=== PATIENT | female | born 1960 | race Caucasian/White ===

== ENCOUNTER 2017-07-17 13:22 | Emergency (ER) | payer OTHER ==
[~2017-07-17] VITALS: Ht 165.1 cm; Wt 74.8 kg
[~2017-07-17 13:22] MED LIST: METFORMIN HCL500 MG PO; PRAVASTATIN PO; SYNTHROID PO
[2017-07-17 14:08] VITALS: BP 155/80
== END 2017-07-17 14:10 | disposition home or self-care (01) ==
LOC: FSED 13:22
DX: R09.81 Nasal congestion (principal); J01.90 Acute sinusitis, unspecified
CPT/HCPCS: 99282

== ENCOUNTER 2024-06-01 15:45 | Observation (INO) | payer OTHER ==
[~2024-06-01] VITALS: Ht 166.4 cm; Wt 53.3 kg
[2024-06-01] MEDS: DEXAMETHASONE SOD PHOS INJ 4 MG/ML SDV IM ONE (16:42)
[2024-06-01] MEDS: ACETAMINOPHEN 325 MG TAB PO ONE (16:43)
[2024-06-01] MEDS: KETOROLAC TROMETHAMINE 30 MG/ML VIAL IM ONE (16:43)
[2024-06-01] MEDS ORDERED: IBUPROFEN600 MG PO (16:54)
[2024-06-01] MEDS ORDERED: HYDROCODON-ACE1 EA12 PO (16:54)
[2024-06-01] MEDS ORDERED: ONDANSETRON ODT4 MG PO (16:54)
[2024-06-01 18:15] VITALS: PULSE 98; RESP 16; TEMP 98
[2024-06-01] MEDS ORDERED: SODIUM CHLORIDE FLUSH 10 ML SYR INJ PRN (18:15)
[2024-06-01] MEDS ORDERED: ONDANSETRON HCL INJ 2MG/ML 2ML 2 MG/ML VIAL IV PRN (18:45)
[2024-06-01] MEDS ORDERED: LACTULOSE SYRUP 20 GM/30 ML UDC PO PRN (18:45)
[2024-06-01] MEDS ORDERED: DIPHENHYDRAMINE HCL INJ 50 MG/ML VIAL IV PRN (18:45)
[2024-06-01] MEDS: LACTATED RINGER'S 1,000 ML IV SCH (18:45)
[2024-06-01] MEDS ORDERED: DEXTROSE 50% SYRINGE 50 ML IV PRN (19:15)
[2024-06-01 20:00] VITALS: BP 136/62; PULSE 105; RESP 18; TEMP 97.8; O2SAT 99
[2024-06-01 21:00] VITALS: BP 136/62; PULSE 105; RESP 18; TEMP 97.8; O2SAT 99
[2024-06-01] MEDS: INSULIN REGULAR, HUMAN 100 UNIT/1 ML SQ SCH (21:00)
[2024-06-01] MEDS ORDERED: ACETAMINOPHEN 325 MG TAB PO PRN (22:30)
[2024-06-01] MEDS ORDERED: BISACODYL 10 MG SUPP PR PRN (22:30)
[2024-06-01] MEDS: Morphine 4mg INJECTION 4 MG/ML INJ IV PRN (23:24)
[2024-06-02] VITALS (7 sets, daily range): BP systolic 137–158; BP diastolic 69–80; PULSE 79–87; RESP 16–18; TEMP 97.3–99.2; O2SAT 97–100
[2024-06-02] MEDS: ZOLPIDEM TARTRATE 5 MG TAB PO PRN (00:21)
[2024-06-02 00:28] LABS: BASOPHILS % 0.2 % (0.0-1.0); EOSINOPHILS % 0.2 % (0.0-6.0); HEMATOCRIT 40.2 % (34.2-44.1); HEMOGLOBIN 13.2 g/dL (12.0-16.0); LYMPHOCYTES # (AUTO) 0.4 (1.0-3.2); LYMPHOCYTES % 10.9 % (18.0-39.1); MEAN CORPUSCULAR HEMOGLOBIN 32.4 pg (28-32); MEAN CORPUSCULAR HGB CONC 32.8 g/dL (31-35); MEAN CORPUSCULAR VOLUME 98.5 fL (81-99); MONOCYTES # (AUTO) 0.1 (0.2-0.8); MONOCYTES % 2.2 % (4.4-11.3); NEUTROPHILS # (AUTO) 3.5 (2.1-6.9); PLATELET COUNT 240 x10e3/uL (140-360); RED BLOOD COUNT 4.08 x10e6/uL (3.6-5.1); RED CELL DISTRIBUTION WIDTH 10.8 % (11.7-14.4); WHITE BLOOD COUNT 4.03 x10e3/uL (4.8-10.8)
[2024-06-02 00:32] LABS: INR 0.85; PROTHROMBIN TIME 12.2 seconds (11.9-14.5)
[2024-06-02 00:33] LABS: PARTIAL THROMBOPLASTIN TIME 27.5 seconds (23.8-35.5)
[2024-06-02 00:43] LABS: ALBUMIN 4.1 g/dL (3.5-5.0); ALBUMIN/GLOBULIN RATIO 1.5 (0.8-2.0); ANION GAP 18.6 mmol/L (8-16); BILIRUBIN,TOTAL 1.9 mg/dL (0.2-1.2); CALCIUM 9.7 mg/dL (8.4-10.2); CREATININE, SERUM 1.38 mg/dL (0.57-1.11); POTASSIUM 4.6 mmol/L (3.5-5.1); TOTAL PROTEIN 6.8 g/dL (6.5-8.1)
[2024-06-02] MEDS: LEVOTHYROXINE SODIUM 75 MCG TAB PO SCH (05:40)
[2024-06-02] MEDS: LEVOTHYROXINE SODIUM 100 MCG TAB PO SCH (05:40)
[2024-06-02] MEDS: FAMOTIDINE 20 MG TAB PO SCH (05:41)
[2024-06-02 07:30] LABS: BASOPHILS % 0.2 % (0.0-1.0); EOSINOPHILS % 0.2 % (0.0-6.0); HEMATOCRIT 38.1 % (34.2-44.1); HEMOGLOBIN 12.4 g/dL (12.0-16.0); LYMPHOCYTES # (AUTO) 0.8 (1.0-3.2); LYMPHOCYTES % 16.6 % (18.0-39.1); MEAN CORPUSCULAR HEMOGLOBIN 32.4 pg (28-32); MEAN CORPUSCULAR HGB CONC 32.5 g/dL (31-35); MEAN CORPUSCULAR VOLUME 99.5 fL (81-99); MONOCYTES # (AUTO) 0.5 (0.2-0.8); MONOCYTES % 10.1 % (4.4-11.3); NEUTROPHILS # (AUTO) 3.7 (2.1-6.9); NEUTROPHILS % 72.7 % (38.7-80.0); PLATELET COUNT 215 x10e3/uL (140-360); RED BLOOD COUNT 3.83 x10e6/uL (3.6-5.1); RED CELL DISTRIBUTION WIDTH 10.9 % (11.7-14.4); WHITE BLOOD COUNT 5.07 x10e3/uL (4.8-10.8)
[2024-06-02 08:04] LABS: ALBUMIN 3.6 g/dL (3.5-5.0); ALBUMIN/GLOBULIN RATIO 1.4 (0.8-2.0); ANION GAP 16.6 mmol/L (8-16); BILIRUBIN,TOTAL 1.8 mg/dL (0.2-1.2); CALCIUM 9.5 mg/dL (8.4-10.2); CREATININE, SERUM 1.07 mg/dL (0.57-1.11); MAGNESIUM 1.6 MG/DL (1.3-2.1); POTASSIUM 4.6 mmol/L (3.5-5.1); TOTAL PROTEIN 6.2 g/dL (6.5-8.1)
[2024-06-02] MEDS: SENNOSIDES 8.6 MG TAB PO SCH (08:18)
[2024-06-02] MEDS: DOCUSATE SODIUM 100 MG CAP PO SCH (08:18)
[2024-06-02 08:26] LABS: FERRITIN 314.93 ng/mL (4.63-204.00)
[2024-06-02] MEDS: HYDROCODONE/APAP 7.5MG-325MG 1 EA TAB PO PRN (08:28)
[2024-06-02] MEDS: ONDANSETRON HCL INJ 2MG/ML 2ML 2 MG/ML VIAL IV PRN (09:54)
[2024-06-02 10:20] LABS: INR 0.87; PROTHROMBIN TIME 12.4 seconds (11.9-14.5)
[2024-06-02 10:21] LABS: PARTIAL THROMBOPLASTIN TIME 25.8 seconds (23.8-35.5)
[2024-06-02] MEDS ORDERED: PROPOFOL IV EMULSION 50 ML IV ONE (15:09)
[2024-06-02] MEDS ORDERED: MIDAZOLAM HCL 2 MG/2 ML VIAL ONE (15:09)
[2024-06-02] MEDS ORDERED: LIDOCAINE HCL 2% LOCAL INJ 5 ML SDV VIAL INJ ONE (15:09)
[2024-06-02] MEDS ORDERED: FENTANYL CITRATE/PF 100MCG/2 ML INJ ONE (15:09)
[2024-06-02] MEDS ORDERED: ONDANSETRON HCL INJ 2MG/ML 2ML 2 MG/ML VIAL ONE (15:40)
[2024-06-02] MEDS ORDERED: DEXAMETHASONE SOD PHOS INJ 4 MG/ML SDV ONE (15:40)
[2024-06-02] MEDS ORDERED: HYDROCODON-ACE1 EA12 PO (16:18)
[2024-06-02] MEDS: HYDROMORPHONE 1MG/1ML INJ ONE (17:12)
== END 2024-06-02 18:25 | disposition home or self-care (01) ==
LOC: FSED 15:55 → ERHOLD 18:09 → INTOOBSV 18:09 → MED/SURG 18:55
PROVIDERS: ADMIT Internal Medicine; ATTEND Internal Medicine
DX: S32.010A Wedge compression fracture of first lumbar vertebra, initial encounter for closed fracture (principal); S80.02XA Contusion of left knee, initial encounter; W01.0XXA Fall on same level from slipping, tripping and stumbling without subsequent striking against object, initial encounter; Y92.009 Unspecified place in unspecified non-institutional (private) residence as the place of occurrence of the external cause; N17.9 Acute kidney failure, unspecified; E87.1 Hypo-osmolality and hyponatremia; R00.0 Tachycardia, unspecified; E03.9 Hypothyroidism, unspecified; Z59.6 Low income; Z98.84 Bariatric surgery status; Z79.899 Other long term (current) drug therapy
CPT/HCPCS: 22514; 36415 ×2; 72131; 72148; 72192; 80053 ×2; 82607; 82728; 82948 ×2; 83540; 83735; 83935; 84300; 84466; 85025 ×2; 85610 ×2; 85730 ×2; 97116; 97161; 97530; 99283; G0378 ×2; J0690; J1100 ×2; J1171; J1885; J2003; J2250; J2270 ×2; J2405; J2704; J3010; J7121; 76000